=== PATIENT | female | born 1970 ===

== ENCOUNTER 2017-12-23 14:07 | Emergency (ER) | payer OTHER ==
[~2017-12-23] VITALS: Ht 157.5 cm; Wt 77.1 kg
== END 2017-12-23 15:59 | disposition home or self-care (01) ==
LOC: ER 14:07
DX: T78.1XXA Other adverse food reactions, not elsewhere classified, initial encounter (principal); R21 Rash and other nonspecific skin eruption

== ENCOUNTER 2018-01-26 08:08 | Emergency (ER) | payer OTHER ==
[~2018-01-26] VITALS: Ht 157.5 cm; Wt 77.1 kg
[~2018-01-26 08:08] MED LIST: BENADRYL25 MG PO; ESTRADIOL0.5 MG; OSTERA TABLET1 EACH; ZYRTEC10 M3 PO
[2018-01-26] MEDS ORDERED: BENADRYL25 MG PO (10:46)
[2018-01-26] MEDS ORDERED: ZYRTEC10 M3 PO (10:46)
[2018-01-26] MEDS ORDERED: MEDROLPACK PO (10:46)
== END 2018-01-26 11:02 | disposition home or self-care (01) ==
LOC: ER 08:08
DX: T78.49XA Other allergy, initial encounter (principal); R21 Rash and other nonspecific skin eruption